=== PATIENT | female | born 1995 | race Two or more races ===

== ENCOUNTER 2017-04-18 14:29 | Emergency (ER) | payer SELFPAY ==
[~2017-04-18] VITALS: Ht 172.7 cm; Wt 59.1 kg
[~2017-04-18 14:29] MED LIST: CELCEPT PO; PRED20TA PO
[2017-04-18 14:56] VITALS: BP 115/72
[2017-04-18 15:18] LABS: HCG UR LOT HCG7030192
[2017-04-18 15:32] LABS: HCG UR OBC PASS
== END 2017-04-18 16:47 | disposition left against medical advice (07) ==
LOC: ED 16:46
DX: N30.01 Acute cystitis with hematuria (principal); G35 Multiple sclerosis; M32.9 Systemic lupus erythematosus, unspecified
CPT/HCPCS: 81001; 81025; 87086; 99284

== ENCOUNTER 2017-04-19 12:10 | Emergency (ER) | payer OTHER ==
[~2017-04-19] VITALS: Ht 172.7 cm; Wt 58.1 kg
[2017-04-19 12:11] VITALS: BP 119/85
[2017-04-19 13:38] LABS: HEMATOCRIT 41.9 % (34.6-47.8); HEMOGLOBIN 14.3 g/dL (11.7-16.4); WHITE BLOOD COUNT 7.5 x10^3/uL (3.4-10)
[2017-04-19 13:52] LABS: BLOOD UREA NITROGEN 7 mg/dL (7-18)
== END 2017-04-19 15:02 | disposition home or self-care (01) ==
LOC: ED 14:54
DX: N30.91 Cystitis, unspecified with hematuria (principal)
CPT/HCPCS: 36415; 80048; 81001; 82040; 84703; 85025; 87086; 99284